=== PATIENT | male | born 1990 | race Two or more races ===

== ENCOUNTER 2020-07-19 18:27 | Emergency (ER) | payer MEDICAID, OTHER ==
[~2020-07-19] VITALS: Ht 188 cm; Wt 155.0 kg
[2020-07-19] MEDS ORDERED: KETOROLAC 60MG/2ML VIAL IM STA (20:17)
[2020-07-19] MEDS ORDERED: CYCLOBENZAPRINE 10MG TABLET PO STA (20:17)
[2020-07-19 21:58] LABS: CLARITY URINE CLEAR (CLEAR); COLOR URINE YELLOW (YELLOW); KETONES URINE TRACE (NEGATIVE); LEUKOCYTE ESTERASE URINE NEGATIVE (NEGATIVE); NITRITE URINE NEGATIVE (NEGATIVE); OCCULT BLOOD URINE NEGATIVE (NEGATIVE); PROTEIN URINE NEGATIVE (NEGATIVE); SPECIFIC GRAVITY URINE 1.029 (1.005-1.030); UROBILINOGEN URINE 0.2 E.U./dL (0.2-1.0)
[2020-07-19 22:21] VITALS: BP 169/98
== END 2020-07-19 22:21 | disposition home or self-care (01) ==
LOC: ER 18:27
DX: S39.012A Strain of muscle, fascia and tendon of lower back, initial encounter (principal); X58.XXXA Exposure to other specified factors, initial encounter; Y93.9 Activity, unspecified; F32.9 Major depressive disorder, single episode, unspecified
CPT/HCPCS: 81003; 96372; 99283; J1885

== ENCOUNTER 2023-01-29 05:58 | Emergency (ER) | payer OTHER ==
[~2023-01-29] VITALS: Ht 190.5 cm; Wt 168.8 kg
[2023-01-29 06:22] VITALS: BP 140/90
[2023-01-29] MEDS ORDERED: IBUP-2029 MT (08:42)
== END 2023-01-29 08:54 | disposition home or self-care (01) ==
LOC: ER 05:58
DX: J02.9 Acute pharyngitis, unspecified (principal); R11.0 Nausea
CPT/HCPCS: 99282